=== PATIENT | female | born 1965 | race Caucasian/White ===

== ENCOUNTER 2018-02-04 14:43 | Emergency (ER) | payer BC, SELFPAY ==
[2018-02-04 15:02] VITALS: BP 130/92; PULSE 108; RESP 20; TEMP 36.9; O2SAT 96; BMI 49.4
--- NOTE | 2018-02-04 15:02 | XR_ITS ---
XR knee RT 3V HISTORY: Posttraumatic pain ITS.REASON: FELL AT HOME 2WKS AGO ORDERING PHYSICIAN: Deirdre Suero PATIENT AGE: 52 years COMPARISON: None FINDINGS: No fracture or dislocation. No lytic or blastic change. Normal mineralization. There are minimal osteoarthritic changes of the patellofemoral joint. IMPRESSION: No acute finding
--- NOTE | 2018-02-04 15:10 | HMH.EDUTC ---
[facility] [place] Clinical Impression: UTI (urinary tract infection) Qualifiers: Urinary tract infection type: site unspecified Hematuria presence: with hematuria Qualified Code(s): N39.0 - Urinary tract infection, site not specified; R31.9 - Hematuria, unspecified Knee sprain Qualifiers: Encounter type: initial encounter Involved ligament of knee: unspecified ligament Laterality: right Qualified Code(s): S83.91XA - Sprain of unspecified site of right knee, initial encounter Disposition: Home, Self-Care Condition on Discharge: Good Instructions: Urinary Tract Infection, DI for Urinary Tract Infection (UTI), DI for Knee Sprain, Knee Sprain Additional Instructions: *weight bearing as tolerated *RICE, Rest the extremity, Ice 15-20 minutes 3-4 times daily, Compress- wear the kahlil wrap as discussed as much as possible to help reduce swelling and pain, Elevate the extremity when at rest *Kahlil wrap is for support and help control swelling, use it except in the shower. Be sure that is not to tight but not to loose either *Elevate when resting *Ibuprofen 600-800mg every 6-8 hours as needed for pain an inflammation. If need something more can take Tylenol in between doses of Ibuprofen to help Immediately follow up for new or worsening of symptoms, or no noticeable improvement over the next 3-5 days *Increase fluids. Water not Soda or Tea *Start antibiotic immediately and be sure to take as ordered for the FULL length of time although you should start to see improvement over the next 48 hours *Pyridium as needed Remember this medication will turn your urine [place]. This is normal but it will stain what ever it gets on *You should not use Pyridium for more than 48 hours. If so , follow up with your primary physician to review urine culture and ensure that antibiotic is adequate for infection *Be SURE to follow up anytime for new or worsening symptoms. AND in 48 hours for urine culture results AND in 10-14 days to repeat UA to ensure infection is resolved and blood no longer present *Be sure to let your PCP know that we sent urine cultures from the [facility] so they can follow up to ensure that you area the on the correct antibiotic Prescriptions: Sulfamethoxazole/Trimethoprim [Bactrim DS tablet] 1 each PO BID #20 tab Referrals: Amy Simons [Primary Care Provider] - 3 days (Follow up in 12-48 hours if no improvement or worsening of symptoms) Time of Disposition: 15:43 Medical Decision Making - Medical Records Medical records reviewed: Yes: I reviewed the patient's medical records. - Aneesh Inquiry Pt receiving controlled substance: No Aneesh was queried for this patient: No Vital Signs: 02/04/18 15:02 Temperature 98.4 F Temperature Source Temporal Artery Scan Pulse Rate [Right] 108 H Respiratory Rate 20 Blood Pressure [Right Arm] 130/92 Blood Pressure Mean [Right Arm] 104 Blood Pressure Source [Right Arm] Automatic Cuff Blood Pressure Position [Right Arm] Sitting 02 Sat by Pulse Oximetry 96 Oxygen Delivery Method Room Air - Lab Data Lab results reviewed: Yes: I reviewed the patient's lab results. Lab Results 02/04/18 15:01: Urine Color Red, Urine Appearance Clear, Urine pH 5.0, Ur Specific [place] 1.025, Urine Protein 1+, Urine Glucose (UA) 250, Urine Ketones 15, Urine Blood Negative, Urine Nitrate Positive A, Urine Bilirubin Trace, Urine Urobilinogen 4, Ur Leukocyte Esterase 3+ A Orders (Tests/Meds): ORDERS Category Date Time Status Knee XR left 2 views [XR knee LT 2V] Stat Exams 02/04/18 15:01 Stop Req Knee XR right 2 views [XR knee RT 2V] Stat Exams 02/04/18 15:02 Ordered - Radiology Data #1 Image(s): Knee Image Reviewed: Yes I reviewed the patient's radiology image w/the ED provider Preliminary Findings: No Fracture Seen [facility] [place] - General Stated complaint: AO 01/18/18 right knee pain Time Seen by Provider: 02/04/18 15:11 Mode of Arrival: Ambulatory Source of Information: Patient Limitatio
[2018-02-04 15:11] LABS: Apearance,Urine Clear (Clear); Color,Urine Red (Yellow)
[2018-02-04 15:12] LABS: Specific Gravity, Urine 1.025 (1.005-1.030)
[2018-02-04 15:15] LABS: Glucose,Urine (UA) 250 (Negative); Protein,Urine 1+ (Negative)
[2018-02-04 15:16] LABS: Bilirubin,Urine Trace (Negative); Blood, Urine Negative (Negative); Ketones,Urine 15 (Negative)
--- NOTE | 2018-02-04 15:16 | ED_ITS ---
[facility] [place] Impression: UTI (urinary tract infection) Qualifiers: Urinary tract infection type: site unspecified Hematuria presence: with hematuria Qualified Code(s): N39.0 - Urinary tract infection, site not specified ; R31.9 - Hematuria, unspecified Knee sprain Qualifiers: Encounter type: initial encounter Involved ligament of knee: unspecified ligament Laterality: right Qualified Code(s): S83.91XA - Sprain of unspecified site of right knee, initial encounter Disposition: Home, Self-Care Condition on Discharge: Good Instructions: Urinary Tract Infection, DI for Urinary Tract Infection (UTI), DI for Knee Sprain, Knee Sprain Additional Instructions: *weight bearing as tolerated *RICE, Rest the extremity, Ice 15-20 minutes 3-4 times daily, Compress- wear the kahlil wrap as discussed as much as possible to help reduce swelling and pain, Elevate the extremity when at rest *Kahlil wrap is for support and help control swelling, use it except in the shower. Be sure that is not to tight but not to loose either *Elevate when resting *Ibuprofen 600-800mg every 6-8 hours as needed for pain an inflammation. If need something more can take Tylenol in between doses of Ibuprofen to help Immediately follow up for new or worsening of symptoms, or no noticeable improvement over the next 3-5 days *Increase fluids. Water not Soda or Tea *Start antibiotic immediately and be sure to take as ordered for the FULL length of time although you should start to see improvement over the next 48 hours *Pyridium as needed Remember this medication will turn your urine [place]. This is normal but it will stain what ever it gets on *You should not use Pyridium for more than 48 hours. If so , follow up with your primary physician to review urine culture and ensure that antibiotic is adequate for infection *Be SURE to follow up anytime for new or worsening symptoms. AND in 48 hours for urine culture results AND in 10-14 days to repeat UA to ensure infection is resolved and blood no longer present *Be sure to let your PCP know that we sent urine cultures from the [facility] so they can follow up to ensure that you area the on the correct antibiotic Prescriptions: Sulfamethoxazole/Trimethoprim [Bactrim DS tablet] 1 each PO BID #20 tab Referrals: Amy Simons [Primary Care Provider] - 3 days (Follow up in 12-48 hours if no improvement or worsening of symptoms) Time of Disposition: 15:43 Medical Decision Making - Medical Records Medical records reviewed: Yes: I reviewed the patient's medical records. - Aneesh Inquiry Pt receiving controlled substance: No Aneesh was queried for this patient: No Vital Signs: 02/04/18 15:02 Temperature 98.4 F Temperature Source Temporal Artery Scan Pulse Rate [Right] 108 H Respiratory Rate 20 Blood Pressure [Right Arm] 130/92 Blood Pressure Mean [Right Arm] 104 Blood Pressure Source [Right Arm] Automatic Cuff Blood Pressure Position [Right Arm] Sitting 02 Sat by Pulse Oximetry 96 Oxygen Delivery Method Room Air - Lab Data Lab results reviewed: Yes: I reviewed the patient's lab results. Lab Results 02/04/18 15:01: Urine Color Red, Urine Appearance Clear, Urine pH 5.0, Ur Specific [place] 1.025, Urine Protein 1+, Urine Glucose (UA) 250, Urine Ketones 15, Urine Blood Negative, Urine Nitrate Positive A, Urine Bilirubin Trace, Urine Urobilinogen 4, Ur Leukocyte Esterase 3+ A Orders (Tests/Meds): ORDERS Category Date Time Status Knee XR left 2
[2018-02-04 15:17] LABS: UTC Leukocyte Esterase,Urine 3+ (Negative); UTC Nitrate,Urine Positive (Negative); Urobilinogen,Urine 4 EU/dl (0.2)
[2018-02-04 16:06] VITALS: BP 130/92; PULSE 100; RESP 20; TEMP 36.9
== END 2018-02-04 16:07 | disposition home or self-care (01) ==
PROVIDERS: Emergency Provider Nurse Practitioner; Family Provider Family Medicine; PCP Family Medicine
DX: N39.0 Urinary tract infection, site not specified (principal); S83.91XA Sprain of unspecified site of right knee, initial encounter; W01.0XXA Fall on same level from slipping, tripping and stumbling without subsequent striking against object, initial encounter; Y92.019 Unspecified place in single-family (private) house as the place of occurrence of the external cause; E11.9 Type 2 diabetes mellitus without complications; Z79.84 Long term (current) use of oral hypoglycemic drugs; I10 Essential (primary) hypertension; M79.7 Fibromyalgia
CPT/HCPCS: 73562; 81003; 87086; 96372; 99202

== ENCOUNTER → 2019-04-13 08:18 | Outpatient (CLI) | payer BC, MEDICARE, SELFPAY ==
--- NOTE | 2019-04-13 08:26 | XR_ITS ---
XR foot wt bearing LT 3V HISTORY: ITS.REASON: fracture/dislocation F/U ORDERING PHYSICIAN: Allie Pino DPM PATIENT AGE: 53 years COMPARISON: 03/09/2019 FINDINGS: There is a faint calcification once again noted at the base and lateral aspect of the fifth metatarsal which could represent an old avulsion fracture. Otherwise negative. IMPRESSION: No change possible avulsion fracture at the base of the fifth metatarsal
== END ==
PROVIDERS: PCP Family Medicine; Visit Provider Podiatrist
DX: M79.672 Pain in left foot (principal); T14.8XXA Other injury of unspecified body region, initial encounter
CPT/HCPCS: 73630

== ENCOUNTER 2019-05-03 08:56 | Outpatient (RCR) | payer BC, MEDICARE, SELFPAY | END 2019-05-03 08:59 | disposition home or self-care (01) | LOC: PT 08:56 | PROVIDERS: Visit Provider Nurse Practitioner | DX: M70.62 Trochanteric bursitis, left hip (principal) | CPT/HCPCS: 97033; 97110; 97163 ==

== ENCOUNTER 2019-05-12 09:30 | Outpatient (RCR) | payer BC, MEDICARE, SELFPAY | END 2019-05-12 09:35 | disposition home or self-care (01) | LOC: PT 09:30 | PROVIDERS: Visit Provider Podiatrist | DX: S93.402A Sprain of unspecified ligament of left ankle, initial encounter (principal) | CPT/HCPCS: 97010; 97014; 97033; 97110; 97163; G0283 ==

== ENCOUNTER → 2020-06-06 08:43 | Outpatient (POV) | payer BC, MEDICARE, SELFPAY | PROVIDERS: PCP Pediatrics; Visit Provider Dermatology | DX: Z00.00 Encounter for general adult medical examination without abnormal findings (principal) ==

== ENCOUNTER 2020-12-28 10:44 | Emergency (ER) | payer BC, MEDICARE, SELFPAY ==
[2020-12-28 11:00] VITALS: BP 158/85; PULSE 95; RESP 20; TEMP 36.9; O2SAT 97; BMI 40.3
--- NOTE | 2020-12-28 11:02 | HMH.EDUTC ---
[facility] [place] Clinical Impression: Sinusitis Qualifiers: Sinusitis location: unspecified location Chronicity: acute Recurrence: non-recurrent Qualified Code(s): J01.90 - Acute sinusitis, unspecified Disposition: Home, Self-Care Condition on Discharge: Good Instructions: Sinusitis, DI for Sinusitis Additional Instructions: Drink plenty of fluids. Take tylenol for pain or fever. Take the medications as directed. Follow up with your regular doctor. GO TO THE ER FOR ANY WORSENING SYMPTOMS Prescriptions: Cefdinir [Omnicef 300mg Capsule] 300 mg PO BID #20 cap Transmission Status: Received by [email or web address] predniSONE [Prednisone 20mg Tab] 20 mg PO BID 5 Days #10 tab Transmission Status: Received by [email or web address] Referrals: Dmitry Belcher JR, MD [Primary Care Provider] - Forms: Work/School Release Time of Disposition: 11:51 Medical Decision Making - Medical Records Medical records reviewed: No: I reviewed the patient's medical records. - Aneesh Inquiry Pt receiving controlled substance: No Vital Signs: 12/28/20 11:00 12/28/20 11:34 Temperature 98.5 F 98.5 F Temperature Source Oral Pulse Rate 95 H Pulse Rate [Right Brachial] 95 H Respiratory Rate 20 20 Blood Pressure 158/85 H Blood Pressure [Right Arm] 158/85 H Blood Pressure Mean [Right Arm] 109 Blood Pressure Source [Right Arm] Automatic Cuff Blood Pressure Position [Right Arm] Sitting 02 Sat by Pulse Oximetry 97 Oxygen Delivery Method Room Air - Lab Data Lab Results 12/28/20 11:20: Urine Color Yellow, Urine Appearance Clear, Urine pH 5.5, Ur Specific [place] <= 1.005, Urine Protein Negative, Urine Glucose (UA) 500, Urine Ketones Negative, Urine Blood Negative, Urine Nitrate Negative, Urine Bilirubin Negative, Urine Urobilinogen 0.2, Ur Leukocyte Esterase Negative Orders (Tests/Meds): ED MEDICATIONS Discontinued Medications Generic Name Dose Route Start Last Admin Trade Name Freq PRN Reason Stop Dose Admin Ceftriaxone Sodium 1 gm 12/28/20 11:36 12/28/20 11:45 Ceftriaxone 1gm Vial IM 12/28/20 11:37 1 gm ONCE ONE Administration Protocol Lidocaine HCl 0 ml 12/28/20 11:36 12/28/20 11:45 Lidocaine 1% 5ml Pf Vial IM 12/28/20 11:37 2.1 ml ONCE ONE Administration ORDERS Category Date Time Status Covid-19 Nasal PCR ([facility]) Routine Lab 12/28/20 11:00 Received [facility] [place] HPI - General Stated complaint: headache,fatigue,nose bleed Time Seen by Provider: 12/28/20 11:03 - History of Present Illness Provider Complaint: She says that she is having sinus congestion, right sided facial pressure and fatigue. She has had these syptoms on and off for the past 3 months or so. She has a history of Sjogren's Syndrome. - Related Data Home Medications Medication Instructions Recorded Confirmed paroxetine HCl 40 mg tablet 1 tbsp PO DAILY 90 Days #90 01/06/18 12/16/19 trazodone 100 mg tablet 1 tab PO DAILY 90 Days #90 01/06/18 12/16/19 tramadol 50 mg tablet 1 tab PO DAILYP PRN 90 Days #270 03/25/19 12/16/19 tizanidine 4 mg tablet 4 mg PO BID tab 12/16/19 12/16/19 Previous Rx's Medication Instructions Recorded Amoxicillin/Potassium Clav 1 tab PO Q12H 10 Days #20 tab 01/28/20 [Augmentin 875-125 Tablet] Fluticasone Propionate [Flonase 1 spr NS DAILY #1 bottle 01/28/20 50mcg nasal spray 16gm] Cefdinir [Omnicef 300mg Capsule] 300 mg PO BID #20 cap 12/28/20 predniSONE [Prednisone 20mg 20 mg PO BID 5 Days #10 tab 12/28/20 Tab] Allergies Allergy/AdvReac Type Severity Reaction Status Date / Time No Known Allergies Allergy Verified 12/16/19 19:13 [facility] History - Hepatitis A Screen Attestation statement:: This patient has been screened for Hepatitis A risk factors. I have reviewed the patient's past medical history: Yes Medical History: Reports:: Diabetes Mellitus Type 1, Hyperlipidemia, Hypertension Denies:: Cancer, Diabetes Me
[2020-12-28 11:34] VITALS: BP 158/85; PULSE 95; RESP 20; TEMP 36.9; O2SAT 97
[2020-12-28 12:14] LABS: Apearance,Urine Clear (Clear); Blood, Urine Negative (Negative); Color,Urine Yellow (Yellow); Glucose,Urine (UA) 500 (Negative); Ketones,Urine Negative (Negative); PH,Urine 5.5 (5.0-8.5); Protein,Urine Negative (Negative); Specific Gravity, Urine <= 1.005 (1.005-1.030)
[2020-12-28 12:15] LABS: Bilirubin,Urine Negative (Negative); UTC Leukocyte Esterase,Urine Negative (Negative); UTC Nitrate,Urine Negative (Negative); Urobilinogen,Urine 0.2 EU/dl (0.2)
== END 2020-12-28 11:55 | disposition home or self-care (01) ==
PROVIDERS: Emergency Provider Nurse Practitioner Family; PCP Pediatrics
DX: J01.90 Acute sinusitis, unspecified (principal)
CPT/HCPCS: 81003; 96372; 99202; G0463; U0003

== ENCOUNTER → 2021-01-23 10:14 | Outpatient (POV) | payer BC, MEDICARE, SELFPAY | PROVIDERS: Visit Provider Dermatology | DX: Z00.00 Encounter for general adult medical examination without abnormal findings (principal) ==

== ENCOUNTER 2021-09-24 13:12 | Emergency (ER) | payer BC, MEDICARE, SELFPAY ==
[2021-09-24 14:50] VITALS: BP 122/65; PULSE 83; RESP 20; TEMP 36.7; O2SAT 99; BMI 40.8
--- NOTE | 2021-09-24 15:14 | HMH.EDUTC ---
[facility] [place] Disposition Clinical Impression: Seasonal allergies Otitis media Qualifiers: Otitis media type: suppurative Chronicity: acute Laterality: bilateral Recurrence: non-recurrent Spontaneous tympanic membrane rupture: without spontaneous rupture Qualified Code(s): H66.003 - Acute suppurative otitis media without spontaneous rupture of ear drum, bilateral Disposition: Home, Self-Care Condition on Discharge: Good Instructions: Middle Ear Infection Additional Instructions: Drink plenty of fluids. Take tylenol or ibuprofen for pain or fever. Take the medications as directed. Follow up with your regular doctor. GO TO THE ER FOR ANY WORSENING SYMPTOMS Follow your diabetic diet closely while you are on the steroids. They will make your blood sugar go up. Prescriptions: methylPREDNISolone [Medrol] 4 mg PO DIRECTED 6 Days #21 packet Transmission Status: Received by [facility] Cefdinir [Omnicef 300mg Capsule] 300 mg PO BID #20 cap Transmission Status: Received by [facility] Referrals: Dmitry Belcher JR, MD [Primary Care Provider] - Time of Disposition: 15:21 Medical Decision Making - Medical Records Medical records reviewed: No: I reviewed the patient's medical records. - Aneesh Inquiry Pt receiving controlled substance: No Vital Signs: 09/24/21 14:50 09/24/21 15:20 Temperature 98.1 F 98.1 F Temperature Source Oral Pulse Rate 83 Pulse Rate [Left Brachial] 83 Respiratory Rate 20 20 Blood Pressure 122/65 Blood Pressure [Left Arm] 122/65 Blood Pressure Mean [Left Arm] 84 Blood Pressure Source [Left Arm] Automatic Cuff Blood Pressure Position [Left Arm] Sitting 02 Sat by Pulse Oximetry 99 Oxygen Delivery Method Room Air - Lab Data Lab results reviewed: Yes: I reviewed the patient's lab results. [facility] [place] HPI - General Stated complaint: lt ear/neck pain Time Seen by Provider: 09/24/21 15:14 Mode of Arrival: Ambulatory Source of Information: Patient Limitations: No Limitations Description of Symptoms (Recalled from Triage Doc. by RN): PATIENT C/O LEFT EAR AND NECK PAIN THAT RADIATES INTO HER LEFT SHOULDER X 2 DAYS. REPORTS A HISTORY OF TMJ, BUT STATES THIS PAIN IS WORSE THAN NORMAL HEENT Symptoms (Recalled from RN notes): Yes Resp Symptoms (Recalled from RN notes): No Skin Symptoms (Recalled from RN notes): No MS Symptoms (Recalled from RN notes): No Functional Status (Recalled from RN notes): wnl - History of Present Illness Provider Complaint: She c/o left ear pain for the past 2 days. She is now having tenderness and pain in the left side of her neck when she turns her head. She denies any fever or chills. She has a history of getting ear infections and she has a history of tmj. She states that she does not feel like this is her normal tmj symptoms. She has been having worsening allergy symptoms for the past several days also. She denies any chest pain or cardiac history. She denies any radiation of her pain. - Related Data Home Medications Medication Instructions Recorded Confirmed paroxetine HCl 40 mg tablet 1 tbsp PO DAILY 90 Days #90 01/06/18 12/16/19 trazodone 100 mg tablet 1 tab PO DAILY 90 Days #90 01/06/18 12/16/19 tramadol 50 mg tablet 1 tab PO DAILYP PRN 90 Days #270 03/25/19 12/16/19 tizanidine 4 mg tablet 4 mg PO BID tab 12/16/19 12/16/19 Previous Rx's Medication Instructions Recorded Amoxicillin/Potassium Clav 1 tab PO Q12H 10 Days #20 tab 01/28/20 [Augmentin 875-125 Tablet] Fluticasone Propionate [Flonase 1 spr NS DAILY #1 bottle 01/28/20 50mcg nasal spray 16gm] Cefdinir [Omnicef 300mg Capsule] 300 mg PO BID #20 cap 12/28/20 predniSONE [Prednisone 20mg 20 mg PO BID 5 Days #10 tab 12/28/20 Tab] Cefdinir [Omnicef 300mg Capsule] 300 mg PO BID #20 cap 09/24/21 methylPREDNISolone [Medrol] 4 mg PO DIRECTED 6 Days #21 09/24/21 packet Allergies Allergy/AdvReac Type Severity Reaction Status Date / Ti
[2021-09-24 15:20] VITALS: BP 122/65; PULSE 83; RESP 20; TEMP 36.7; O2SAT 99
== END 2021-09-24 15:25 | disposition home or self-care (01) ==
PROVIDERS: Emergency Provider Nurse Practitioner Family; PCP Pediatrics
DX: H66.003 Acute suppurative otitis media without spontaneous rupture of ear drum, bilateral (principal); M25.512 Pain in left shoulder; E10.9 Type 1 diabetes mellitus without complications; I10 Essential (primary) hypertension; E78.5 Hyperlipidemia, unspecified; Z79.899 Other long term (current) drug therapy
CPT/HCPCS: 99202; G0463

== ENCOUNTER 2021-10-25 12:48 | Emergency (ER) | payer BC, MEDICARE, SELFPAY ==
[2021-10-25 12:56] VITALS: BP 128/90; PULSE 70; RESP 16; TEMP 36.9; O2SAT 98; BMI 34.3
[2021-10-25 13:15] VITALS: BP 128/90; PULSE 70; RESP 16; TEMP 36.9; O2SAT 98; BMI 34.1
--- NOTE | 2021-10-25 14:13 | HMH.EDUTC ---
[facility] [place]: Muscle spasm Disposition: Home, Self-Care Condition on Discharge: Good Instructions: Methylprednisolone, DI for Muscle Spasm Additional Instructions: Do not take your current Tizanidine prescription, you was given a different dose to take for the next 5 days Take the medication you was prescribed today then you may resume you previous prescription after the 5 day dose change to keep you from running out of your medication Warm compresses may help with muscle spasm and pain Follow up with your Family Doctor if no improvement or any worsening of symptoms Return if needed Straight to ER if any life threatening symptoms Start oral steriods tomorrow Prescriptions: methylPREDNISolone [Medrol 4mg tab] 4 mg PO DIRECTED #21 tab Transmission Status: Received by [facility] Tizanidine HCl [Zanaflex 4mg tab] 8 mg PO TID #30 tab Transmission Status: Received by [id number] Referrals: Dmitry Belcher JR, MD [Primary Care Provider] - As needed Time of Disposition: 15:03 Medical Decision Making - Aneesh Inquiry Pt receiving controlled substance: No Aneesh was queried for this patient: No Vital Signs: 10/25/21 12:56 10/25/21 13:15 Temperature 98.5 F 98.5 F Temperature Source Oral Oral Pulse Rate [Right] 70 70 Respiratory Rate 16 16 Blood Pressure [Right Arm] 128/90 128/90 Blood Pressure Mean [Right Arm] 102 102 Blood Pressure Source [Right Arm] Automatic Cuff Automatic Cuff Blood Pressure Position [Right Arm] Sitting Sitting 02 Sat by Pulse Oximetry 98 98 Oxygen Delivery Method Room Air Room Air Orders (Tests/Meds): ED MEDICATIONS Discontinued Medications Generic Name Dose Route Start Last Admin Trade Name Freq PRN Reason Stop Dose Admin Methylprednisolone Sodium Succinate 125 mg 10/25/21 14:46 10/25/21 14:54 Methylprednisolone Sod Succ 125mg Vial IM 10/25/21 14:47 125 mg ONCE ONE Administration Medical Decision Narrative: Medication discussed with [place] [facility] [place] - General Stated complaint: neck and arm pain, no accident Time Seen by Provider: 10/25/21 14:17 Mode of Arrival: Ambulatory Source of Information: Patient Limitations: No Limitations Description of Symptoms (Recalled from Triage Doc. by RN): pt c/o left shouler and arm pain. Advises it feels like she has pulled a muscle, she has a hx of problems like this. Advises it has been going on for couple of weeks and she thought it would get better. Takes muscle relaxers but had little relief HEENT Symptoms (Recalled from RN notes): No Resp Symptoms (Recalled from RN notes): No Skin Symptoms (Recalled from RN notes): No MS Symptoms (Recalled from RN notes): Yes Functional Status (Recalled from RN notes): WNL - History of Present Illness Provider Complaint: Patient states that she feels like she is having muscle spasms in her left shoulder area States that she has been having pain in her neck/shoulder area for a couple of weeks States that she takes muscle relaxers daily but hasnt helped much States that pain in her shoulder area is worse with movement and feels tight States that today she was still having pain so she came in to see if there was something she could get - Related Data Home Medications Medication Instructions Recorded Confirmed paroxetine HCl 40 mg tablet 1 tbsp PO DAILY 90 Days #90 01/06/18 12/16/19 trazodone 100 mg tablet 1 tab PO DAILY 90 Days #90 01/06/18 12/16/19 tramadol 50 mg tablet 1 tab PO DAILYP PRN 90 Days #270 03/25/19 12/16/19 tizanidine 4 mg tablet 4 mg PO BID tab 12/16/19 12/16/19 Previous Rx's Medication Instructions Recorded Amoxicillin/Potassium Clav 1 tab PO Q12H 10 Days #20 tab 01/28/20 [Augmentin 875-125 Tablet] Fluticasone Propionate [Flonase 1 spr NS DAILY #1 bottle 01/28/20 50mcg nasal spray 16gm] Cefdinir [Omnicef 300mg Capsule] 300 mg PO BID #20 cap 12/28/20 predniSONE [Prednisone 20mg 20 mg PO BID 5 Days #
[2021-10-25 15:11] VITALS: BP 128/90; PULSE 70; RESP 16; TEMP 36.9; O2SAT 98
== END 2021-10-25 15:15 | disposition home or self-care (01) ==
PROVIDERS: Emergency Provider Nurse Practitioner; PCP Pediatrics
DX: M62.838 Other muscle spasm (principal); M25.512 Pain in left shoulder; E10.9 Type 1 diabetes mellitus without complications; M79.7 Fibromyalgia
CPT/HCPCS: 96372; 99202; G0463

== ENCOUNTER 2022-08-09 09:53 | Emergency (ER) | payer BC, MEDICARE, SELFPAY ==
--- NOTE | 2022-08-09 10:04 | XR_ITS ---
FINAL REPORT CLINICAL HISTORY: FALL, right hand pain and swelling FINDINGS: RIGHT HAND Three views demonstrate no acute fracture. There is no dislocation. The visualized joint spaces are normally aligned. There are mild degenerative changes. There is a small chronic calcification adjacent to the 2nd proximal phalanx. The soft tissues are otherwise unremarkable. IMPRESSION: No acute bony abnormality. Reviewed, Interpreted and Dictated by Ed Taylor III, MD Transcribed by Cassie Faria Authenticated and [facility]
[2022-08-09 10:57] VITALS: BP 122/71; PULSE 86; RESP 19; TEMP 36.6; O2SAT 98; BMI 33.4
--- NOTE | 2022-08-09 11:07 | EXP.UTC ---
Discharge Plan Disposition Patient Disposition: Home, Self-Care Condition: Good Prescriptions Prescriptions: No Action trazodone 100 mg tablet 1 tab PO DAILY 90 Days Qty: 90 Label Comments: paroxetine HCl 40 mg tablet 1 tbsp PO DAILY 90 Days Qty: 90 Label Comments: tramadol 50 mg tablet 1 tab PO DAILYP PRN (Reason: PAIN) 90 Days Qty: 270 Label Comments: tizanidine 4 mg tablet 4 mg PO BID Label Comments: TAKE 2 TABLETS BY MOUTH TWICE DAILY FOR 90 DAYS prednisone 20 MG tablet 20 mg PO BID 5 Days Qty: 10 0RF cefdinir 300 MG capsule 300 mg PO BID Qty: 20 0RF methylprednisolone 4 MG tablets,dose pack 4 mg PO DIRECTED 6 Days Qty: 21 0RF cefdinir 300 MG capsule 300 mg PO BID Qty: 20 0RF tizanidine 4 MG tablet 8 mg PO TID Qty: 30 0RF Rx Instructions: increase dose of medication, do not take current Tiazadine with this medication, may resume when this regimen is complete methylprednisolone 4 MG tablet 4 mg PO DIRECTED Qty: 21 0RF Rx Instructions: Take as directed on package instructions fluticasone propionate 120 SPR/BOT bottle 1 spr NS DAILY Qty: 1 0RF Rx Instructions: each nostril daily amoxicillin-pot clavulanate 1 EACH tablet 1 tab PO Q12H 10 Days Qty: 20 0RF Referrals Follow up/Referrals: Talib Hoff MBBS [Primary Care Provider] - See instructions Activity Restrictions/Add. Instructions Additional Instructions/Restrictions: *RICE, Rest the extremity, Ice 15-20 minutes 3-4 times daily, Compress- wear the kahlil wrap as discussed as much as possible to help reduce swelling and pain, Elevate the extremity when at rest *Kahlil wrap is for support and help control swelling, use it except in the shower. Be sure that is not to tight but not to loose either *Elevate when resting? *Ibuprofen every 6-8 hours as needed for pain an inflammation. If need something more can take Tylenol in between doses of Ibuprofen to help Immediately follow up with your family doctor for new or worsening of symptoms, or no noticeable improvement over the next 3-5 days Clinical Impressions Clinical Impression: Contusion of hand Instructions Patient Instructions: DI for Contusion, Ibuprofen, How To Perform RICE (Rest, Ice, Compress, Elevate) Discharge ED Provider: Deirdre Suero [facility] [place] HPI General Stated complaint: AO fell@home 08/09/22 RT hand pain Mode of Arrival: Ambulatory Source of Information: Patient Limitations: No Limitations Time Seen by Provider: 08/09/22 11:07 Description of Symptoms (Recalled from Triage Doc. by RN): Pt c/o rt hand pain after falling this AM while walking through the house. HEENT Symptoms (Recalled from RN notes): No Resp Symptoms (Recalled from RN notes): No Skin Symptoms (Recalled from RN notes): No MS Symptoms (Recalled from RN notes): Yes (Rt hand injury) Functional Status (Recalled from RN notes): n/a History of Present Illness Provider Complaint: Patient states that she was at home this morning when she slipped and fell and hurt her right hand States that she has been having pain and swelling in her her knuckles on her index and middle finger States that hurts when she moves them or makes a fist States that when she was still having some bruising and swelling she came in to get it tested Related Data Home Medications Medication Instructions Recorded Confirmed paroxetine HCl 40 mg tablet 1 tbsp PO DAILY MOOD 90 days ##90 01/06/18 12/16/19 trazodone 100 mg tablet 1 tab PO DAILY MOOD 90 days ##90 01/06/18 12/16/19 tramadol 50 mg tablet 1 tab PO DAILYP PRN PAIN 90 days 03/25/19 12/16/19 ##270 tizanidine 4 mg tablet 4 mg PO BID 12/16/19 12/16/19 Previous Rx's Medication Instructions Recorded amoxicillin 875 mg-potassium 1 tab PO Q12H 10 days #20 tabs 01/28/20 clavulanate 125 mg tablet fluticasone propionate 50 1 spr NS DAILY ##1 01/28/20 mcg/actuation nasal spr
[2022-08-09 11:21] VITALS: BP 122/71; PULSE 86; RESP 19; TEMP 36.6; O2SAT 98
== END 2022-08-09 11:24 | disposition home or self-care (01) ==
PROVIDERS: Emergency Provider Nurse Practitioner; PCP Family Medicine Sports Medicine
DX: S60.221A Contusion of right hand, initial encounter (principal)
CPT/HCPCS: 73130; 99212; G0463

== ENCOUNTER 2022-10-13 11:25 | Emergency (ER) | payer BC, MEDICARE, SELFPAY ==
--- NOTE | 2022-10-13 13:30 | EXP.UTC ---
Discharge Plan Disposition Patient Disposition: Home, Self-Care Condition: Good Prescriptions Prescriptions: New benzonatate [benzonatate] 100 mg capsule 100 mg PO TIDP PRN (Reason: Cough) Qty: 30 0RF methylprednisolone 4 mg Tablets,Dose Pack 4 mg PO DIRECTED Qty: 21 0RF amoxicillin-pot clavulanate 500-125 mg tablet 1 tab PO BID Qty: 20 0RF ciprofloxacin-dexamethasone 0.3-0.1 % Drops,Suspension 2 drp OTIC (EAR) BID 7 Days Qty: 1 0RF No Action trazodone 100 mg tablet 1 tab PO DAILY 90 Days Qty: 90 Label Comments: paroxetine HCl 40 mg tablet 1 tbsp PO DAILY 90 Days Qty: 90 Label Comments: tramadol 50 mg tablet 1 tab PO DAILYP PRN (Reason: PAIN) 90 Days Qty: 270 Label Comments: tizanidine 4 mg tablet 4 mg PO BID Label Comments: TAKE 2 TABLETS BY MOUTH TWICE DAILY FOR 90 DAYS prednisone 20 MG tablet 20 mg PO BID 5 Days Qty: 10 0RF cefdinir 300 MG capsule 300 mg PO BID Qty: 20 0RF methylprednisolone 4 MG tablets,dose pack 4 mg PO DIRECTED 6 Days Qty: 21 0RF cefdinir 300 MG capsule 300 mg PO BID Qty: 20 0RF tizanidine 4 MG tablet 8 mg PO TID Qty: 30 0RF Rx Instructions: increase dose of medication, do not take current Tiazadine with this medication, may resume when this regimen is complete methylprednisolone 4 MG tablet 4 mg PO DIRECTED Qty: 21 0RF Rx Instructions: Take as directed on package instructions fluticasone propionate 120 SPR/BOT bottle 1 spr NS DAILY Qty: 1 0RF Rx Instructions: each nostril daily amoxicillin-pot clavulanate 1 EACH tablet 1 tab PO Q12H 10 Days Qty: 20 0RF Referrals Follow up/Referrals: Provider,Referral, MD [Primary Care Provider] - See instructions Activity Restrictions/Add. Instructions Additional Instructions/Restrictions: Drink plenty of fluids. Take tylenol or ibuprofen for pain or fever. Take the medications as directed. Follow up with your regular doctor. GO TO THE ER FOR ANY WORSENING SYMPTOMS Clinical Impressions Clinical Impression: Otitis media Instructions Patient Instructions: Middle Ear Infection Discharge ED Provider: Paresh Christiansen [facility] General Stated complaint: Earache both Time Seen by Provider: 10/13/22 13:26 History of Present Illness Provider Complaint: She reports that she his having bilateral ear pain, cough and low grade fever for the past 3 days. Related Data Home Medications Medication Instructions Recorded Confirmed paroxetine HCl 40 mg tablet 1 tbsp PO DAILY MOOD 90 days ##90 01/06/18 12/16/19 trazodone 100 mg tablet 1 tab PO DAILY MOOD 90 days ##90 01/06/18 12/16/19 tramadol 50 mg tablet 1 tab PO DAILYP PRN PAIN 90 days 03/25/19 12/16/19 ##270 tizanidine 4 mg tablet 4 mg PO BID 12/16/19 12/16/19 Previous Rx's Medication Instructions Recorded amoxicillin 875 mg-potassium 1 tab PO Q12H 10 days #20 tabs 01/28/20 clavulanate 125 mg tablet fluticasone propionate 50 1 spr NS DAILY ##1 01/28/20 mcg/actuation nasal spray,suspension cefdinir 300 mg capsule 300 mg PO BID #20 caps 12/28/20 prednisone 20 mg tablet 20 mg PO BID 5 days #10 tabs 12/28/20 cefdinir 300 mg capsule 300 mg PO BID #20 caps 09/24/21 methylprednisolone 4 mg tablets in 4 mg PO DIRECTED 6 days #21 09/24/21 a dose pack packets methylprednisolone 4 mg tablet 4 mg PO DIRECTED #21 tabs 10/25/21 tizanidine 4 mg tablet 8 mg PO TID #30 tabs 10/25/21 amoxicillin 500 mg-potassium 1 tab PO BID #20 tabs 10/13/22 clavulanate 125 mg tablet benzonatate 100 mg capsule 100 mg PO TIDP PRN Cough #30 caps 10/13/22 ciprofloxacin 0.3 %-dexamethasone 2 drp otic (ear) BID 7 days #1 ea 10/13/22 0.1 % ear drops,suspension methylprednisolone 4 mg tablets in 4 mg PO DIRECTED #21 tabs 10/13/22 a dose pack Allergies Allergy/AdvReac Type Severity Reaction Status Date / Time No Known Allergies Allergy Ve
[2022-10-13 13:31] VITALS: BP 135/75; PULSE 81; RESP 16; TEMP 36.8; O2SAT 95; BMI 41.5
[2022-10-13 14:14] VITALS: BP 135/75; PULSE 81; RESP 16; TEMP 36.8
== END 2022-10-13 14:17 | disposition home or self-care (01) ==
PROVIDERS: Emergency Provider Nurse Practitioner Family
DX: H66.93 Otitis media, unspecified, bilateral (principal); R50.9 Fever, unspecified; R05.9 Cough, unspecified; Z79.1 Long term (current) use of non-steroidal anti-inflammatories (NSAID); Z79.51 Long term (current) use of inhaled steroids; Z79.52 Long term (current) use of systemic steroids; Z79.899 Other long term (current) drug therapy
CPT/HCPCS: 99213; G0463

== ENCOUNTER 2023-04-16 11:24 | Emergency (ER) | payer BC, SELFPAY ==
[2023-04-16 11:36] VITALS: BP 135/71; PULSE 103; RESP 18; TEMP 36.8; O2SAT 95; BMI 38.3
--- NOTE | 2023-04-16 11:41 | EXP.UTC ---
Discharge Plan Disposition Patient Disposition: Home, Self-Care Condition: Good Prescriptions Prescriptions: New ciprofloxacin-dexamethasone 0.3-0.1 % Drops,Suspension 2 drp Ear-Both BID 7 Days Qty: 1 0RF methylprednisolone 4 mg Tablets,Dose Pack 4 mg PO DIRECTED Qty: 21 0RF amoxicillin-pot clavulanate 875-125 mg Tablet 1 tab PO Q12H Qty: 20 0RF No Action trazodone 100 mg tablet 1 tab PO DAILY 90 Days Qty: 90 Label Comments: paroxetine HCl 40 mg tablet 1 tbsp PO DAILY 90 Days Qty: 90 Label Comments: tramadol 50 mg tablet 1 tab PO DAILYP PRN (Reason: PAIN) 90 Days Qty: 270 Label Comments: fluticasone propionate [Allergy Relief (fluticasone)] 50 mcg/actuation spray,suspension 1 spray intranasal DAILY Qty: 16 2RF Rx Instructions: administer into each nostril amoxicillin-pot clavulanate 875-125 mg tablet 1 tab PO BID Qty: 20 0RF tizanidine 4 MG tablet 8 mg PO TID Qty: 30 0RF Rx Instructions: increase dose of medication, do not take current Tiazadine with this medication, may resume when this regimen is complete Referrals Follow up/Referrals: Provider,Referral, MD [Primary Care Provider] - See instructions Activity Restrictions/Add. Instructions Additional Instructions/Restrictions: Drink plenty of fluids. Take tylenol or ibuprofen for pain or fever. Take the medications as directed. Follow up with your regular doctor. GO TO THE ER FOR ANY WORSENING SYMPTOMS Clinical Impressions Clinical Impression: Sinusitis, Bronchitis Instructions Patient Instructions: Sinusitis, DI for Sinusitis Discharge ED Provider: Paresh Christiansen [facility] General Stated complaint: Chest congestion, cough, sinus congestion Time Seen by Provider: 04/16/23 11:41 History of Present Illness Provider Complaint: She states that for the past 4 days she has had worsening sinus congestion and chest congestion. Related Data Home Medications Medication Instructions Recorded Confirmed paroxetine HCl 40 mg tablet 1 tbsp PO DAILY MOOD 90 days ##90 01/06/18 02/03/23 trazodone 100 mg tablet 1 tab PO DAILY MOOD 90 days ##90 01/06/18 02/03/23 tramadol 50 mg tablet 1 tab PO DAILYP PRN PAIN 90 days 03/25/19 02/03/23 ##270 Previous Rx's Medication Instructions Recorded tizanidine 4 mg tablet 8 mg PO TID #30 tabs 10/25/21 amoxicillin 875 mg-potassium 1 tab PO BID #20 tabs 02/03/23 clavulanate 125 mg tablet fluticasone propionate 50 1 spray intranasal DAILY #16 grams 02/03/23 mcg/actuation nasal spray,suspension (Allergy Relief (fluticasone)) amoxicillin 875 mg-potassium 1 tab PO Q12H #20 tabs 04/16/23 clavulanate 125 mg tablet ciprofloxacin 0.3 %-dexamethasone 2 drp Ear-Both BID 7 days #1 ea 04/16/23 0.1 % ear drops,suspension methylprednisolone 4 mg tablets in 4 mg PO DIRECTED #21 tabs 04/16/23 a dose pack Allergies Allergy/AdvReac Type Severity Reaction Status Date / Time No Known Allergies Allergy Verified 02/03/23 09:34 [facility] Disclaimer: The information contained in this section may have been updated after the patient was seen, as this information can be updated by other users. Social History Smoking Status: Never smoker alcohol intake: never current occupational status: other Travel in the last 8 weeks: None household members: spouse housing: house current occupational exposures/hazards: No ROS Obtained: Yes All systems reviewed & no additional complaints except as documented Constitutional Constitutional: Reports poor appetite Eyes Eyes: Reports system reviewed and no additional complaints, except as documented ENT Ears, Nose, Mouth, and Throat: Reports as per HPI Cardiovascular Cardiovascular: Reports system reviewed and no additional complaints, except as documented and Denies chest pain Respiratory Respiratory: Denies
[2023-04-16 12:44] VITALS: BP 135/71; PULSE 103; RESP 18; TEMP 36.8
== END 2023-04-16 12:12 | disposition home or self-care (01) ==
PROVIDERS: Emergency Provider Nurse Practitioner Family
DX: J20.9 Acute bronchitis, unspecified (principal); J01.90 Acute sinusitis, unspecified
CPT/HCPCS: 99212; 99214; G0463

== ENCOUNTER → 2023-09-23 07:20 | Outpatient (CLI) | payer BC, SELFPAY ==
[2023-09-23 20:31] LABS: Basophils # 0.1 K/mm3 (0-0.2); Basophils % 0.8 % (0.1-2.0); Eosinophils # 0.3 K/mm3 (0.0-0.4); Eosinophils % 4.4 % (0.1-12.0); Hematocrit 38.6 % (37.0-47.0); Hemoglobin 13.3 g/dL (12.2-16.2); Lymphocytes # 1.8 K/mm3 (0.7-4.5); Lymphocytes % 24.8 % (10-50); Mean Corpuscular HGB Conc 34.5 g/dL (31.8-35.4); Mean Corpuscular Hemoglobin 31.8 pg (27.0-31.2); Mean Corpuscular Volume 92.2 fl (81-99); Mean Platelet Volume 10.5 fl (7.4-10.4); Monocytes # 0.4 K/mm3 (0.1-1.0); Neutrophils # 4.7 K/mm3 (1.8-7.8); Platelet Count 211 K/mm3 (142-424); Red Blood Count 4.19 M/mm3 (4.20-5.40); Red Cell Distribution Width 13.4 % (11.5-17.5); White Blood Count 7.2 K/mm3 (4.8-10.8)
[2023-09-23 21:44] LABS: Alanine Aminotransferase 32 U/L (12-78); Albumin/Globulin Ratio 1.5 (1.1-1.8); Alkaline Phosphatase 91 U/L (38-126); Anion Gap 11.9 mEq/L (5-15); Aspartate Amino Transferase 40 U/L (14-36); Bilirubin,Total 0.3 mg/dl (0.2-1.3); Blood Urea Nitrogen 21 mg/dl (7-17); Calcium 8.7 mg/dl (8.4-10.2); Carbon Dioxide 32 mmol/L (22.0-30.0); Chloride 97 mmol/L (98-107); Chol/HDL Ratio 1.9 (1-3.5); Cholesterol 138 mg/dl (140-200); Estimated Glomerular Filt Rate 74 ml/min (>60); GFR (African American) 89 ML/MIN (>60); Globulin 2.6 g/dL (1.3-3.2); Glucose 180 mg/dl (74-100); HDL Cholesterol 73 mg/dl (40-60); Potassium 3.9 mmoL/L (3.5-5.1); Sodium 137 mmol/L (136-145); Total Protein,Serum 6.6 g/dl (6.3-8.2); Triglycerides 67 mg/dl (30-150); VLDL Cholesterol 13 mg/dL (0-40)
[2023-09-23 22:01] LABS: Direct LDL Cholesterol 60.65 mg/dL (100-129)
[2023-09-23 22:17] LABS: Thyroid Stimulating Hormone 3.14 uIU/mL (0.465-4.68)
[2023-09-23 23:30] LABS: 25-OH Vitamin D, Total 52.1 ng/mL (30-100)
[2023-09-23 23:37] LABS: Hemoglobin A1C 6.5 % (4.0-6.0)
== END ==
PROVIDERS: PCP Student in an Organized Health Care Education/Training Program; Visit Provider Student in an Organized Health Care Education/Training Program
DX: E11.9 Type 2 diabetes mellitus without complications (principal); I10 Essential (primary) hypertension; E55.9 Vitamin D deficiency, unspecified; Z68.41 Body mass index [BMI] 40.0-44.9, adult; Z79.84 Long term (current) use of oral hypoglycemic drugs
CPT/HCPCS: 80053; 80061; 82306; 83036; 84443; 85025

== ENCOUNTER → 2023-10-29 22:00 | Outpatient (CLI) | payer BC, SELFPAY | PROVIDERS: PCP Nurse Practitioner Family; Visit Provider Nurse Practitioner Family | DX: R35.0 Frequency of micturition (principal); B96.29 Other Escherichia coli [E. coli] as the cause of diseases classified elsewhere | CPT/HCPCS: 87086 ==

== ENCOUNTER 2023-12-01 23:34 | Outpatient (CLI) | payer BC, SELFPAY | END 2023-12-01 23:59 | LOC: LAB.DROPOF 23:34 | PROVIDERS: PCP Nurse Practitioner Family; Visit Provider Student in an Organized Health Care Education/Training Program | DX: N39.0 Urinary tract infection, site not specified (principal); B96.29 Other Escherichia coli [E. coli] as the cause of diseases classified elsewhere | CPT/HCPCS: 87086 ==

== ENCOUNTER 2024-01-18 12:28 | Emergency (ER) | payer BC, SELFPAY ==
[2024-01-18 13:20] VITALS: BP 140/69; PULSE 95; RESP 18; TEMP 36.5; O2SAT 96; BMI 40.1
--- NOTE | 2024-01-18 13:30 | ED_ITS ---
Discharge Plan Disposition Patient Disposition: Home, Self-Care Condition: Good Prescriptions Prescriptions: New phenazopyridine [Pyridium] 200 mg tablet 200 mg PO Q8H 2 Days Qty: 6 0RF ciprofloxacin HCl [Cipro] 500 mg tablet 500 mg PO BID 7 Days Qty: 14 0RF ondansetron 4 mg Tablet,Disintegrating 4 mg PO Q8H PRN (Reason: Nausea) Qty: 8 0RF No Action trazodone 100 mg tablet 1 tab PO DAILY 90 Days Qty: 90 Patient Comments: paroxetine HCl 40 mg tablet 1 tbsp PO DAILY 90 Days Qty: 90 Patient Comments: tramadol 50 mg tablet 1 tab PO DAILYP PRN (Reason: PAIN) 90 Days Qty: 270 Patient Comments: duloxetine 60 mg capsule,delayed release(DR/EC) 60 mg PO BID hydroxychloroquine 200 mg tablet 200 mg PO BID Patient Comments: TAKE 1 TABLET BY MOUTH TWICE DAILY celecoxib 200 mg capsule 200 mg PO BID atorvastatin 40 mg tablet 40 mg PO DAILY Patient Comments: TAKE 1 TABLET BY MOUTH ONCE DAILY AT NIGHT valsartan-hydrochlorothiazide 160-12.5 mg tablet 1 tab PO DAILY Patient Comments: TAKE 1 TABLET BY MOUTH ONCE DAILY pregabalin 300 mg capsule 300 mg PO BID Premarin 0.625 mg/gram cream 0.625 mg vaginal .twice weekly Qty: 30 2RF Rx Instructions: blueberry sized amount (0.5g) into the vagina, twice weekly Mounjaro 2.5 mg/0.5 mL pen injector 2.5 mg SQ WEEKLY 28 Days Qty: 2 0RF sulfamethoxazole-trimethoprim 800-160 mg tablet 1 tab PO BID Qty: 14 0RF tizanidine 4 MG tablet 8 mg PO TID Qty: 30 0RF Rx Instructions: increase dose of medication, do not take current Tiazadine with this medication, may resume when this regimen is complete Referrals Follow up/Referrals: Lelia Whitten PA [Primary Care Provider] - See instructions Activity Restrictions/Add. Instructions Additional Instructions/Restrictions: Drink plenty of fluids. Take tylenol or ibuprofen for pain or fever. Take the medications as directed. Follow up with your regular doctor. GO TO THE ER FOR ANY WORSENING SYMPTOMS The pyridium will make your urine turn orange, this is an expected side effect. It will stain your clothes if it comes into contact with them. We will culture the urine. That will tell what bacteria is causing your infection and which antibiotics will treat it best. Sometimes the first antibiotic we prescribe turns out to not work against different bacteria. So, make sure you follow up within 3 days if you are not getting better. Clinical Impressions Clinical Impression: UTI (urinary tract infection) Instructions Patient Instructions: Urinary Tract Infection, Urine Culture, DI for Urinary Tract Infection (UTI), Phenazopyridine Discharge ED Provider: Paresh Christiansen [facility] [place] [place] General Stated complaint: Pain while urinating Time Seen by Provider: 01/18/24 13:29 History of Present Illness Provider Complaint: She states that for the past 2 days she has had dysuria, urinary frequency, and dysuria. Related Data Home Medications Medication Instructions Recorded Confirmed paroxetine HCl 40 mg tablet 1 tbsp PO DAILY MOOD 90 days ##90 01/06/18 12/01/23 trazodone 100 mg tablet 1 tab PO DAILY MOOD 90 days ##90 01/06/18 12/01/23 tramadol 50 mg tablet 1 tab PO DAILYP PRN PAIN 90 days 03/25/19 12/01/23 ##270 atorvastatin 40 mg tablet 40 mg PO DAILY 05/22/23 12/01/23 celecoxib 200 mg capsule 200 mg PO BID 05/22/23 12/01/23 duloxetine 60 mg capsule,delayed 60 mg PO BID 05/22/23 12/01/23 release hydroxychloroquine 200 mg tablet 200 mg PO BID 05/22/23 12/01/23 pregabalin 300 mg capsule 300 mg PO BID 05/22/23 12/01/23 valsartan 160 1 tab PO DAILY 05/22/23 12/01/23 mg-hydrochlorothiazide 12.5 mg tablet Previous Rx's Medication Instructions Recorded tizanidine 4 mg tablet 8 mg PO TID #30 tabs 10/25/21 conjugated estrogens 0.625 mg/gram 0.625 mg vaginal .twice weekly #30 05/22/23 vaginal cream (Premarin) grams tirzepatide 2.5 mg/0.5 mL 2.5 mg (0.5 mL) SQ WEEKLY 4 weeks 09/24/23 subcutaneous pen injector #2 mL (Santo) sulfamethoxazole 800 1 tab PO BID #14 tabs 12/01/23 mg-trimethoprim 160 mg tablet ciprofloxacin HCl 500 mg tablet 500 mg PO BID 7 days #14 tabs 01/18/24 (Cipro) ondansetron 4 mg disintegrating 4 mg PO Q8H PRN Nausea #8 tabs 01/18/24 tablet phenazopyridine 200 mg tablet 200 mg PO Q8H 2 days #6 tabs 01/18/24 (Pyridium) Allergies Allergy/AdvReac Type Severity Reaction Status Date / Time No Known Allergies Allergy Verified 12/01/23 15:37 [facility] Disclaimer: The information contained in this section may have been updated after the patient was seen, as this information can be updated by other users. Medical History Acute carpal tunnel syndrome Anxiety Arthritis BMI 40.0-44.9, adult Bronchitis Burning with urination delivery delivered Contusion of hand Febrile illness, acute Fibromyalgia History of hypertension HLD (hyperlipidemia) Increased frequency of urination Knee sprain Left ankle sprain Muscle spasm Navicular fracture, foot Obesity Osteoarthritis Otitis media Pharyngitis Psoriatic arthritis Sinusitis Skin rash Type 2 diabetes mellitus Surgical History H/O lumpectomy H/O: hysterectomy History of appendectomy History of cholecystectomy History of placement of ear tubes Family History Other Alcoholism Anemia Asthma Cancer Coronary artery disease Diabetes Heart attack Hyperlipidemia Hypertension Kidney disease Stroke Thyroid disorder Social History Smoking Status: Never smoker alcohol intake: never current occupational status: other Travel in the last 8 weeks: None household members: spouse housing: house current occupational exposures/hazards: No ROS Obtained: Yes All systems reviewed & no additional complaints except as documented Constitutional Constitutional: Reports system reviewed and no additional complaints, except as documented, Denies chills and Denies fever(s) Eyes Eyes: Denies eye discharge ENT Ears, Nose, Mouth, and Throat: Denies dysphagia, Denies sore throat and Denies throat swelling Cardiovascular Cardiovascular: Denies chest pain and Denies dyspnea Respiratory Respiratory: Denies chest congestion, Denies cough and Denies dyspnea Gastrointestinal Gastrointestingal: Denies abdominal pain, constipation, diarrhea, dysphagia, nausea or vomiting Genitourinary Female Genitourinary: Reports as per HPI, Reports dysuria, Reports urinary frequency, Denies urinary incontinence, Reports urinary hesitancy and Reports urinary urgency Musculoskeletal Musculoskeletal: Denies arthralgias and Reports back pain Integumentary/Breasts Skin/Breast: Denies rash Neurologic Neurologic: Denies paresthesias Allergic/Immunologic Allergic/Immunologic: Denies throat swelling Physical Exam General General appearance: alert and in no apparent distress Head Head exam: atraumatic and normocephalic Eye Eye exam: Present normal appearance, PERRL and EOMI ENT ENT exam: Present normal exam, mucous membranes moist, TM's normal bilaterally and normal external ear exam Neck Neck exam: Present normal inspection, full ROM and trachea midline; Absent tenderness, meningismus or lymphadenopathy Chest Chest inspection: Present normal inspection and symmetric chest wall rise; Absent tenderness Respiratory Respiratory exam: Present normal lung sounds bilaterally; Absent respiratory distress, wheezes or stridor Cardiovascular Cardiovascular exam: Present regular rate, normal rhythm and normal heart sounds Abdominal Exam Abdominal exam: Present soft and normal bowel sounds; Absent distention, tenderness, guarding, rebound, rigidity, incision, psoas sign, obturator sign, heel tap sign, Luo's sign, Rovsing's sign or tenderness at McBurney's Point Extremities Exam Extremities exam: Present normal inspection, full ROM and normal capillary refill; Absent tenderness, edema, joint swelling, calf tenderness or cyanosis Back Exam Back exam: Present normal inspection and full ROM; Absent tenderness, CVA tenderness (R) or CVA tenderness (L) Neurological Exam Neurological exam: Present alert, oriented X3 and normal gait Psychiatric Psychiatric exam: Present normal affect and normal mood Skin Skin exam: Present warm, dry, intact and normal color Lymphatic Lymphatic Findings: no adenopathy Medical Decision Making Medical Records Medical records reviewed: No I reviewed the patient's medical records. Aneesh Inquiry Pt receiving controlled substance: No Lab Data Lab results reviewed: Yes I reviewed the patient's lab results.
[2024-01-18 13:37] LABS: Apearance,Urine Slightly Cloudy (Clear); Bilirubin,Urine Negative (Negative); Blood, Urine Negative (Negative); Color,Urine Dark Yellow (Yellow); Glucose,Urine (UA) 2+ (Negative); Ketones,Urine Negative (Negative); PH,Urine 5.5 (5.0-8.5); Protein,Urine Negative (Negative); UTC Leukocyte Esterase,Urine Negative (Negative); UTC Nitrate,Urine Positive (Negative); Urobilinogen,Urine 0.2 EU/dl (0.2)
[2024-01-18 13:53] VITALS: BP 140/69; PULSE 95; RESP 18; TEMP 36.5; O2SAT 96
== END 2024-01-18 13:59 | disposition home or self-care (01) ==
PROVIDERS: Emergency Provider Nurse Practitioner Family; PCP Student in an Organized Health Care Education/Training Program
DX: N39.0 Urinary tract infection, site not specified (principal); B96.29 Other Escherichia coli [E. coli] as the cause of diseases classified elsewhere; I10 Essential (primary) hypertension; E78.5 Hyperlipidemia, unspecified
CPT/HCPCS: 81003; 87086; 87880; 99212; 99214; G0463

== ENCOUNTER 2024-01-29 22:28 | Outpatient (CLI) | payer BC, SELFPAY ==
[2024-01-29 19:15] LABS: Basophils # 0.1 K/mm3 (0-0.2); Basophils % 1.6 % (0.1-2.0); Eosinophils # 0.3 K/mm3 (0.0-0.4); Eosinophils % 6.7 % (0.1-12.0); Hematocrit 41.7 % (37.0-47.0); Hemoglobin 13.4 g/dL (12.2-16.2); Lymphocytes # 1.9 K/mm3 (0.7-4.5); Lymphocytes % 37.4 % (10-50); Mean Corpuscular HGB Conc 32.1 g/dL (31.8-35.4); Mean Corpuscular Hemoglobin 30.8 pg (27.0-31.2); Mean Platelet Volume 10.8 fl (7.4-10.4); Monocytes # 0.3 K/mm3 (0.1-1.0); Monocytes % 6.1 % (1.7-9.3); Neutrophils # 2.4 K/mm3 (1.8-7.8); Neutrophils % 48.2 % (37.0-80.0); Platelet Count 224 K/mm3 (142-424); Red Blood Count 4.34 M/mm3 (4.20-5.40); Red Cell Distribution Width 13.8 % (11.5-17.5); White Blood Count 5.1 K/mm3 (4.8-10.8)
[2024-01-29 19:47] LABS: Hemoglobin A1C 6.6 % (4.0-6.0)
[2024-01-29 19:49] LABS: Alanine Aminotransferase 32 U/L (12-78); Albumin Level 4.1 g/dl (3.5-5.0); Albumin/Globulin Ratio 1.6 (1.1-1.8); Alkaline Phosphatase 96 U/L (38-126); Anion Gap 9.5 mEq/L (5-15); Aspartate Amino Transferase 37 U/L (14-36); Bilirubin,Total 0.7 mg/dl (0.2-1.3); Blood Urea Nitrogen 18 mg/dl (7-17); Calcium 8.9 mg/dl (8.4-10.2); Carbon Dioxide 29 mmol/L (22.0-30.0); Chloride 102 mmol/L (98-107); Chol/HDL Ratio 2.5 (1-3.5); Cholesterol 152 mg/dl (140-200); Estimated Glomerular Filt Rate 74 ml/min (>60); GFR (African American) 89 ML/MIN (>60); Globulin 2.5 g/dL (1.3-3.2); Glucose 167 mg/dl (74-100); HDL Cholesterol 61 mg/dl (40-60); Potassium 3.5 mmoL/L (3.5-5.1); Sodium 137 mmol/L (136-145); Total Protein,Serum 6.6 g/dl (6.3-8.2); Triglycerides 166 mg/dl (30-150); VLDL Cholesterol 33 mg/dL (0-40)
[2024-01-29 20:01] LABS: Direct LDL Cholesterol 56.19 mg/dL (100-129)
[2024-01-29 20:07] LABS: 25-OH Vitamin D, Total 48.4 ng/mL (30-100)
[2024-01-29 20:21] LABS: Thyroid Stimulating Hormone 1.48 uIU/mL (0.465-4.68)
== END 2024-01-29 23:59 ==
LOC: LAB.DROPOF 22:29
PROVIDERS: PCP Student in an Organized Health Care Education/Training Program; Visit Provider Student in an Organized Health Care Education/Training Program
DX: E11.9 Type 2 diabetes mellitus without complications (principal); E78.5 Hyperlipidemia, unspecified; E55.9 Vitamin D deficiency, unspecified; Z79.899 Other long term (current) drug therapy
CPT/HCPCS: 80053; 80061; 82306; 83036; 84443; 85025

== ENCOUNTER 2024-02-06 18:30 | Outpatient (CLI) | payer BC, SELFPAY | END 2024-02-06 23:59 | LOC: LAB.DROPOF 18:31 | PROVIDERS: PCP Student in an Organized Health Care Education/Training Program; Visit Provider Student in an Organized Health Care Education/Training Program | DX: N39.0 Urinary tract infection, site not specified (principal); B96.29 Other Escherichia coli [E. coli] as the cause of diseases classified elsewhere | CPT/HCPCS: 87086 ==

== ENCOUNTER 2024-02-08 10:16 | Emergency (ER) | payer BC, SELFPAY ==
[2024-02-08 10:40] VITALS: BP 132/49; PULSE 102; RESP 19; TEMP 36.6; O2SAT 95; BMI 35.2
--- NOTE | 2024-02-08 10:58 | ED_ITS ---
Discharge Plan Disposition Patient Disposition: Home, Self-Care Condition: Good Prescriptions Prescriptions: New amoxicillin 500 mg tablet 500 mg PO BID Qty: 20 0RF No Action celecoxib 200 mg capsule 200 mg PO DAILY atorvastatin 40 mg tablet 40 mg PO HS Patient Comments: TAKE 1 TABLET BY MOUTH ONCE DAILY AT NIGHT tizanidine 4 mg tablet 4 mg PO DAILY Patient Comments: TAKE 2 TABLETS BY MOUTH THREE TIMES DAILY fluconazole 150 mg tablet 150 mg PO DAILY Patient Comments: TAKE 1 TABLET BY MOUTH ONCE DAILY FOR 14 DAYS trazodone 100 mg tablet 100 mg PO DAILY Patient Comments: TAKE 1 TABLET BY MOUTH ONCE DAILY AT NIGHT hydroxychloroquine 200 mg tablet 200 mg PO DAILY Patient Comments: TAKE 1 TABLET BY MOUTH TWICE DAILY paroxetine HCl 40 mg tablet 40 mg PO DAILY Patient Comments: TAKE 1 TABLET BY MOUTH ONCE DAILY duloxetine 60 mg capsule,delayed release(DR/EC) 60 mg PO DAILY Patient Comments: TAKE 1 CAPSULE BY MOUTH TWICE DAILY pregabalin 300 mg capsule 300 mg PO DAILY Patient Comments: TAKE 1 CAPSULE BY MOUTH TWICE DAILY Mounjaro 2.5 mg/0.5 mL pen injector 2.5 mg SQ WEEKLY Referrals Follow up/Referrals: Lelia Whitten PA [Primary Care Provider] - See instructions Activity Restrictions/Add. Instructions Additional Instructions/Restrictions: *Monitor Temp, Over the counter Motrin or Tylenol as directed/as needed Tylenol every 4 hours and Motrin every 6 hours (as long as your family doctor has told you that you can take it) for fever or pain. and straight to ER if unable to lower temp less than 101.0 after medication given *Warm salt water gargles may help to soothe the throat *Throat Lozenges? *Warm fluids like tea with honey may help to soothe the throat? *Sleep elevated *Humidifier/Vaporizer *If you did not take Penicillin shot or was unable to, start taking antibiotic immediately and make sure that you take it for the FULL length of time although you should start to feel better in 24-48 hours *change toothbrush and toothpaste 24-48 hours after starting to take antibiotics so you do not reinfect yourself Monitor Temp. Tylenol and/or Ibuprofen as needed. ER if fever is no less than 101 despite alternating Tylenol and Ibuprofen * Encourage fluids, water, Gatorade, powerade, pedialyte if infant/toddler/or child *Cold fluids, popsicles and ice cream may feel good on his throat Follow up IMMEDIATELY for new or worsening symptoms or no Noticeable improvement over the next 48-72 hours. 911 for difficulty breathing or swallowing Clinical Impressions Clinical Impression: Strep throat Instructions Patient Instructions: DI for Strep Throat, Strep Throat Discharge ED Provider: Deirdre Suero [facility] General Stated complaint: BROWN, sore throat Mode of Arrival: Ambulatory Source of Information: Patient Limitations: No Limitations Time Seen by Provider: 02/08/24 10:58 Description of Symptoms (Recalled from Triage Doc. by RN): PATIENT C/O SORE THROAT, EAR PAIN AND BODY ACHES SINCE LAST NIGHT HEENT Symptoms (Recalled from RN notes): Yes Resp Symptoms (Recalled from RN notes): No Skin Symptoms (Recalled from RN notes): No MS Symptoms (Recalled from RN notes): No Functional Status (Recalled from RN notes): WNL History of Present Illness Provider Complaint: Patient states that her daughter has strep throat and last night she started with sore throat and feeling pain in her ears when she swallows and feeling achy so today she came in to get checked Related Data Home Medications Medication Instructions Recorded Confirmed atorvastatin 40 mg tablet 40 mg PO HS 02/08/24 02/08/24 celecoxib 200 mg capsule 200 mg PO DAILY 02/08/24 02/08/24 duloxetine 60 mg capsule,delayed 60 mg PO DAILY 02/08/24 02/08/24 release fluconazole 150 mg tablet 150 mg PO DAILY 02/08/24 02/08/24 hydroxychloroquine 200 mg tablet 200 mg PO DAILY 02/08/24 02/08/24 paroxetine HCl 40 mg tablet 40 mg PO DAILY 02/08/24 02/08/24 pregabalin 300 mg capsule 300 mg PO DAILY 02/08/24 02/08/24 tirzepatide 2.5 mg/0.5 mL 2.5 mg SQ WEEKLY 02/08/24 02/08/24 subcutaneous pen injector (Santo) tizanidine 4 mg tablet 4 mg PO DAILY 02/08/24 02/08/24 trazodone 100 mg tablet 100 mg PO DAILY 02/08/24 02/08/24 Previous Rx's Medication Instructions Recorded amoxicillin 500 mg tablet 500 mg PO BID #20 tabs 02/08/24 Allergies Allergy/AdvReac Type Severity Reaction Status Date / Time No Known Allergies Allergy Verified 02/06/24 13:14 Worker's Comp Is this a Worker's Comp case?: No [facility] Disclaimer: The information contained in this section may have been updated after the patient was seen, as this information can be updated by other users. Medical History Increased frequency of urination Type 2 diabetes mellitus HLD (hyperlipidemia) Anxiety BMI 40.0-44.9, adult Obesity Psoriatic arthritis delivery delivered Acute carpal tunnel syndrome Fibromyalgia Osteoarthritis Arthritis History of hypertension Contusion of hand Muscle spasm Otitis media Pharyngitis Febrile illness, acute Skin rash Sinusitis Bronchitis Left ankle sprain Navicular fracture, foot Burning with urination Knee sprain Surgical History H/O lumpectomy History of placement of ear tubes History of appendectomy History of cholecystectomy H/O: hysterectomy has ovaries Family History Other Alcoholism Anemia Asthma Cancer Coronary artery disease Diabetes Heart attack Hyperlipidemia Hypertension Kidney disease Stroke Thyroid disorder Social History Smoking Status: Never smoker alcohol intake: never current occupational status: other Travel in the last 8 weeks: None household members: spouse housing: house current occupational exposures/hazards: No ROS Obtained: Yes All systems reviewed & no additional complaints except as documented and Yes Systems reviewed as appropriate & no additional complaints except as documented Constitutional Constitutional: Reports system reviewed and no additional complaints, except as documented, Reports as per HPI and Reports body ache ENT Ears, Nose, Mouth, and Throat: Reports system reviewed and no additional complaints, except as documented, Reports as per HPI, Reports otalgia and Reports sore throat Cardiovascular Cardiovascular: Reports system reviewed and no additional complaints, except as documented and Reports as per HPI Respiratory Respiratory: Reports system reviewed and no additional complaints, except as documented and Reports as per HPI Gastrointestinal Gastrointestingal: Reports system reviewed and no additional complaints, except as documented and as per HPI Physical Exam General General appearance: alert and in no apparent distress ENT ENT exam: Present mucous membranes moist Expanded ENT Exam Throat exam: Present tonsillar erythema Respiratory Respiratory exam: Present normal lung sounds bilaterally; Absent respiratory distress or wheezes Cardiovascular Cardiovascular exam: Present regular rate, normal rhythm and normal heart sounds Neurological Exam Neurological exam: Present alert, oriented X3 and normal gait Medical Decision Making Aneesh Inquiry Pt receiving controlled substance: No Aneesh was queried for this patient: No Vital Signs: 02/08/24 10:40 Temperature 97.9 F Temperature Source Oral Pulse Rate [Right Brachial] 102 H Respiratory Rate 19 Blood Pressure [Right Arm] 132/49 L Blood Pressure Mean [Right Arm] 76 Blood Pressure Source [Right Arm] Automatic Cuff Blood Pressure Position [Right Arm] Sitting 02 Sat by Pulse Oximetry 95 Oxygen Delivery Method Room Air Lab Data Lab results reviewed: Yes I reviewed the patient's lab results.
[2024-02-08 11:04] VITALS: BP 132/49; PULSE 102; RESP 19; TEMP 36.6; O2SAT 95
[2024-02-08 11:06] LABS: UTC Strep Screen (Rapid) Positive (Negative)
== END 2024-02-08 11:09 | disposition home or self-care (01) ==
PROVIDERS: Emergency Provider Nurse Practitioner; PCP Student in an Organized Health Care Education/Training Program
DX: J02.0 Streptococcal pharyngitis (principal); R51.9 Headache, unspecified; H92.09 Otalgia, unspecified ear; E11.9 Type 2 diabetes mellitus without complications; E78.5 Hyperlipidemia, unspecified; F41.9 Anxiety disorder, unspecified; L40.52 Psoriatic arthritis mutilans
CPT/HCPCS: 87880; 99212; 99214; G0463

== ENCOUNTER 2024-05-21 09:29 | Outpatient (CLI) | payer BC, SELFPAY ==
[2024-05-21 19:27] LABS: Cholesterol 147 mg/dl (140-200); HDL Cholesterol 72 mg/dl (40-60); Triglycerides 86 mg/dl (30-150); VLDL Cholesterol 17 mg/dL (0-40)
[2024-05-21 19:39] LABS: Direct LDL Cholesterol 45.86 mg/dL (100-129)
[2024-05-21 20:17] LABS: Hemoglobin A1C 6.8 % (4.0-6.0)
== END 2024-05-21 23:59 | disposition home or self-care (01) ==
LOC: LAB.DROPOF 05-24 09:31
PROVIDERS: PCP Student in an Organized Health Care Education/Training Program; Visit Provider Student in an Organized Health Care Education/Training Program
DX: E11.9 Type 2 diabetes mellitus without complications (principal); Z79.85 Long-term (current) use of injectable non-insulin antidiabetic drugs
CPT/HCPCS: 80061; 83036

== ENCOUNTER 2025-07-26 10:14 | Outpatient (CLI) | payer MEDICARE, BC, SELFPAY ==
--- OUTSIDE RECORDS SUMMARY | 2025-07-26 10:55 | XMS_ITS | Clinical Summary ---
Author Organization [facility] Address [address] [place] [address] Care Team Providers Care Pecan Huller Name Role Phone Amy Garay MD Primary Care Provider [phone] Social History Tobacco Use Types Packs/Day Years Used Date Smoking Tobacco: Never Assessed Abuse Screen Answer Date Recorded Unsafe at Home or Work/School Not on file Feels Threatened by Someone? Not on file 07/2023 Does Anyone Keep You from Co ntacting Others or Doint Things Outside the Home? Not on file 09/01/2023 Physical Sign of Abuse Present Not on file 1 Housing Stability Answer Date Recorded Current Living Arrangements Not on file 07/2023 Potentially Unsafe Housing Conditions Not on louie e 09/01/2023 Family and Community Support Answer Oskar e Recorded Help with Day-to-Day Activities Not on file 09/01/2023 Lonely or Isolated Not on file 09/01/2023 Employment Answer Date Recorded Do you want help finding or keeping work or a johnny b? Not on file 09/01/2023 Disabilities Answer Date Recorded Concentrating, Remembering, or Making Decisions Difficulty Not on file 09/01/2023 Doing Errands Independently Difficulty Not on fi le 09/01/2023 Education Answer Date Recorded Help with school or training? Not on file Preferred Language Not on file 09/01/2023 Comments Unknown Sex and Gender Information Value Date Recorded Sex Assigned at Not on file Legal Sex Female 12:02 PM EDT Gender Identity Not on file Sexual Orientation Not on file Plan of Treatment Health Maintenance Due Date Last Done Comments ANNUAL PHYSICAL 1965 Annual Gynecologic Pelvic an d Breast Exam 1965 HEPATITIS C SCREENING 1965 MAMMOGRAM 2005 COLOGUARD 2010 COLON CANCER SCREENING 5 YEA R SIGMOIDOSCOPY 2010 COLONOSCOPY [address] CANCER SCREENING 2010 CT COLONOGRAPHY 2010 FECAL OCCULT BLOOD TEST 2010 FIT Testing (1 year) 2010 TDAP/TD VACCINES (2 - Tdap) 04/22/2012 04/22/2002 Pneumococcal Vaccine 50+ (1 of 1 - PCV) 2015 ZOSTER VACCINE (2 of 2) 12/11/2019 10/16/2019 COVID-19 Vaccine (2 - 2023-2 5 season) 2024 01/31/2021 INFLUENZA VACCINE 08/24/2025 08/22/2021, , 10/16/2019, Additional history exists HEMOGLOBIN A1C Discontinued 12/31/2021, 05/2022, 09/28/2021, Additional history exists Insurance [facility] PPO Member Subscriber Plan / Payer (Ef fective 2020-Present) Name:Robbin Keen Relation to Subscriber:Spouse Name:PASHA KEEN Date of :1962 (Home) Address: [place] [address] Payer ID:[id number] (NAIC) Type:Not on file Address: [facility] [id number] [place] [id number] Care Teams Pecan Huller Relationship Specialty Start Date End Date Amy Garay MD [address] [place] [address] PCP - General 02/21/16
--- OUTSIDE RECORDS SUMMARY | 2025-07-26 10:55 | XMS_ITS | Clinical Summary ---
Author Organization [facility] Address [address] [place] [address] Care Team Providers Care Console Attendant Name Role Phone Talib Hoff MD Primary Care Provider Allergies Active Allergy Reactions Criticality Noted Date Comments Acetaminophen Unknown - Patient st ates they do not know rxn details Low 01/23/2016 Was told not to take due to Sjogren's syndrome Nsaids Unknown - Patient st ates they do not know rxn details Low 01/23/2016 Was told not to take due to Sjohren's syndrome Medications celecoxib (CeleBREX) 100 MG capsule Take 1 capsule (100 mg) by mouth 2 (two) times a day. 12/21/19 21 Active fluticasone (Flonase) 50 MCG/ACT nasal spray Administer 1 spray into each nostril 2 (two) times a day. 12/21/19 21 Active pregabalin (Lyrica) 300 MG capsule Take 1 capsule (300 mg) by mouth 2 (two) times a day. 01/02/20 17 Active tiZANidine (Zanaflex) 4 MG tablet Take 2 tablets (8 mg) by mouth every 8 (eight) hours if needed. 07/02/20 16 Active traMADol (Ultram) 50 MG tablet Take 2 tablets (100 mg) by mouth 3 (three) times a day. 06/26/20 16 Active diclofenac (Voltaren) 1 % topical gelIndications:Acut e right-sided low back pain without sciatica,Neck pain, musculoskeletal Place 1 application on the skin 2 (two) times a day. 50 g 07/20/20 21 Active B-12 [address] 1 UNDER THE TONGUE AND LET DISSOLVE ONCE DAILY 05/06/20 22 Active hydroxychloroquine (Plaquenil) 200 MG tablet 05/07/20 22 Active Premarin vaginal cream APPLY A BLUEBERRY (0.5G) SIZED AMOUNT VAGINALLY TWICE WEEKLY 05/22/20 23 Active valsartan-hydroCHLO ROthiazide (Diovan-HCT) 160-12.5 MG tabletIndications:B enign essential HTN Take 1 tablet by mouth 1 (one) time each day. 90 tablet 3 05/30/20 23 Active DULoxetine (Cymbalta) [address] capsule Take 1 capsule (60 mg) by mouth 1 (one) time each day. 90 capsule 3 05/30/20 23 Active Mounjaro 10 MG/0.5ML solution pen-injector solution pen-injectorIndicat ions:Type 2 diabetes mellitus without complication, without long-term current use of insulin INJECT 10MG UNDER THE SKIN ONCE PER WEEK 4 mL 01/19/20 24 Active traZODone (Desyrel) 100 MG tabletIndications:P rimary insomnia TAKE 1 TABLET BY MOUTH ONCE DAILY AT NIGHT 30 tablet 05/19/20 24 Active PARoxetine (Paxil) 40 MG tabletIndications:C urrent mild episode of major depressive disorder without prior episode (CMS/HCC) Take 1 tablet by mouth once daily 30 tablet 05/19/20 24 Active atorvastatin (Lipitor) 40 MG tabletIndications:M ixed hyperlipidemia TAKE 1 TABLET BY MOUTH ONCE DAILY AT NIGHT 90 tablet 06/28/20 24 Active Active Problems Problem Noted Date Diagnosed Date Morbid obesity with body mass index (BMI) of 40. 0 or higher 12/31/2021 Sjogren's syndrome 06/25/2021 Allergic rhinitis 04/11/2021 Type 2 diabetes mellitus wit hout complication, without long-term current use of insulin 04/11/2021 Fibromyalgia 12/22/2019 Hyperlipidemia 12/22/2019 Insomnia 08/12/2018 Depression 02/18/2018 Benign essential HTN 04/23/2017 Arthropathic psoriasis 01/23/2016 Asthma 01/23/2016 LANG (nonalcoholic steatohepatitis) 01/23/2016 Resolved Problems Problem Noted Date Diagnosed Date Resolved Date Acute right-sided low back p ain without sciatica 07/20/2021 09/28/2021 Neck pain, musculoskeletal 07/20/2021 1 11/28/2020 Morbid obesity 07/15/2017 12/31/2021 Immunizations Immunization Administration Dates Next Due Hep B, adult 07/08/2002,04/02/2002,03/02/2002 Influenza, injectable, quadrivalent 09/24/2019,1 Influenza, injectable, quadr ivalent, preservative free 09/17/2022,08/22/2021,08/29/2020,2018,09/21/2019,09/27/2018 Latanya COVID-19 Vaccine (Bl ue Cap) 18+ 01/31/2021 MMR 04/02/2002,03/02/2002 Moderna COVID-19 Vaccine (Re d Cap) 12+ years 12/06/2021 TD (adult), 2 Lf tetanus tox oid, preservative free, adsorbed 04/22/2002 Zoster, Recombinant 10/16/2019 Family History Medical History Relation Name Comments Leukemia Father Menorrhagia Father Relation Name Status Comments Father Social History Tobacco Use Types Packs/Day Years Used Date Smoking Tobacco: Never Smokeless Tobacco: Never Tobacco Cessation:Counseling Given: Not Answered PHQ-2 Answer Date Recorded Patient Health Questionnaire-2 Score 0 08/29/2023 PHQ-2A Answer Date Recorded Patient Health Questionnaire-2 Score 0 08/29/2023 Comments Unknown Sex and Gender Information Value Date Recorded Sex Assigned at Not on file Legal Sex Female 7:49 PM EDT Gender Identity Not on file Sexual Orientation Not on file Last Filed Vital Signs Vital Sign Reading Time Taken Comments Blood Pressure 100/74 08/29/2023 10:02 AM EDT Pulse 74 08/29/2023 10:02 AM EDT Temperature 36.8 C (98.3 F) 01/21/2023 1:20 PM EST Respiratory Rate 18 08/29/2023 10:0 2 AM EDT Oxygen Saturation 100% 08/29/2023 10: 02 AM EDT Inhaled Oxygen Concentration - - Weight 97.9 kg (215 lb 13.3 oz) 023 10:02 AM EDT Height 154.9 cm (5' 1 ) 08/29/2023 10:0 2 AM EDT Body Mass Index 40.78 08/29/2023 10:02 AM EDT Plan of Treatment Health Maintenance Due Date Last Done Comments [facility]-HIV Screening 1965 [facility]-Hepatitis C Screening 1965 [facility]-/Child/Adol SDOH Screenings 1965 Diabetes: Dental Exam 1975 [facility]- SDOH Screenings 1983 [facility]-Adult SDOH Screenings 1983 [facility]-Hepatitis A Vaccines (1 of 2 - Risk 2-dose series) 1984 [facility]-Pneumococcal Vaccine: 50+ Years (1 of 2 - PCV) 1984 [facility]-Pap Smear 1986 [facility]-Cervical Cancer Screening 1995 [facility]-HPV/Cotest 1995 [facility]-DTaP,Tdap,and Td Vaccines (1 - Tdap) 04/23/2002 04/22/2002 CT Colonography 2010 Colonoscopy 2010 FIT 2010 FOBT 2010 Sigmoidoscopy 2010 [facility]-Zoster Vaccines (2 of 2) 12/11/2019 10/16/2019 [facility]-Breast Cancer Screening 04/30/2023 04/30/2021, 0 04/30/2021 [facility]-Diabetes: Hemoglobin A1C 11/27/202305/2023, 01/21/2023, 10/21/2022, Additional history exists [facility]-PTUNO-60 Vaccine (3 - season) 2024 12/06/2021, 01/31/2021 [facility]-Depression Screening 08/29/2024 08/29/2023 [facility]-Influenza Vaccine (#1) 07/25/202509/17, 08/22/2021, 08/29/2020, Additional history exists FIT-DNA 10/09/2025 10/09/2022, 09/08/2019 [facility]-Colorectal Cancer Screening 10/09/2025 [facility]-Hepatitis B Vaccines Completed 002, 04/02/2002, 03/02/2002 [facility]-Obesity Intervention Completed 023, 05/30/2023, 05/30/2023, Additional history exists HPV Vaccines Aged Out No longer eligi ble based on patient's age to complete this topic [facility]-HIB Vaccines Aged Out No longer e ligible based on patient's age to complete this topic [facility]-IPV Vaccines Aged Out No longer e ligible based on patient's age to complete this topic [facility]-Rotavirus Vaccines Aged Out No lo nger eligible based on patient's age to complete this topic Procedures Procedure Name Priority Date/Time Associated Diagnosis Comments HEMOGLOBIN A1C Routine 05/30/2023 9:28 AM EDT Type 2 diabetes mellitus without complication, without long-term current use of insulin ([facility]) LAB COLOGUARD COLON CANCER SCREEN Routine 10/09/2022 12:51 PM EST Healthcare maintenance MAMMOGRAPHY EXTERNAL RESULTS 04/30/2021 from Last 3 Months or Most Recently Relevant to Health Maintenance Results * (ABNORMAL) Hemoglobin A1c (05/30/2023 9:28 AM EDT) Hemoglobin A1c 6.6(H) <5.7 % 05/30/2023 2:08 PM EDT [facility] Blood Venous blood specimen / Unknown Venipuncture / Unknown 05/30/2023 9:28 AM EDT 05/30/2023 9:28 AM EDT Narrative [facility] - 05/30/2023 2:08 PM EDT HA1C Interpretive Data: Diagnosis of Diabetes: Diabetic > or = 6.5% Pre-diabetic 5.7 to 6.4% Non-diabetic < or = 5.6% Glycemic Targets for Type I and Type II Diabetics: Non- Adults <7.0% Adults <6.0% Children and Adolescents <7.5% Source: [place] [employer]. Standards of medical care in diabetes,2017. Diabetes Care.2017:40 (suppl 1):S1-S135. HbA1c assay performed by an ion-exchange chromatography method that is certified traceable to the DCCT. us Talib Hoff MD LAB BLOOD ORDERABLES Fi nal Result [facility] [address] [place] [address] * Cologuard?? colon cancer screening (10/09/2022 12:51 PM EST) Cologuard Negative Negative 10/14/2022 9:19 PM [facility] (CLIA #:[id number]) Comment: NEGATIVE TEST RESULT. A negative Cologuard result indicates a low likelihood that a colorectal cancer (CRC) or advanced adenoma (adenomatous polyps with more advanced pre-malignant features) is present. The chance that a person with a negative Cologuard test has a colorectal cancer is less than 1 in 1500 (negative predictive value >99.9%) or has an advanced adenoma is less than 5.3% (negative predictive value 94.7%). These data are based on a prospective cross-sectional study of 10,000 individuals at average risk for colorectal cancer who were screened with both Cologuard and colonoscopy. (Yao mSith al, N Engl J Med 2014;370(14):3946-9693) The normal value (reference range) for this assay is negative. COLOGUARD RE-SCREENING RECOMMENDATION: Periodic colorectal cancer screening is an important part of preventive healthcare for asymptomatic individuals at average risk for colorectal cancer. Following a negative Cologuard result, the [place] Cancer Society and U.S. Multi-Society Task Force screening guidelines recommend a Cologuard re-screening interval of 3 years. References: [place] [employer] Guideline for Colorectal Cancer Screening: https://www.cancer.org/cancer/viyib-lysjbe-uubbhv/uaoozcjbs-xgvfklgtq-pewphig/ac s-rec ommendations.html.; Chevy DK, Loli CR, Jay TillmanK, Colorectal Cancer Screening: Recommendations for Physicians and Patients from the U.S. Multi-Society Task Force on Colorectal Cancer Screening , Am J Gastroenterology 2017; 112:0459-0762. TEST DESCRIPTION: Composite algorithmic analysis of stool DNA-biomarkers with hemoglobin immunoassay. Quantitative values of individual biomarkers are not reportable and are not associated with individual biomarker result reference ranges. Cologuard is intended for colorectal cancer screening of adults of either sex, 45 years or older, who are at average-risk for colorectal cancer (CRC). Cologuard has been approved for use by the U.S. FDA. The performance of Cologuard was established in a cross sectional study of average-risk adults aged 50-84. Cologuard performance in patients ages 45 to 49 years was estimated by sub-group analysis of near-age groups. Colonoscopies performed for a positive result may find as the most clinically significant lesion: colorectal cancer [4.0%], advanced adenoma (including sessile serrated polyps greater than or equal to 1cm diameter) [20%] or non- advanced adenoma [31%]; or no colorectal neoplasia [45%]. These estimates are derived from a prospective cross-sectional screening study of 10,000 individuals at average risk for colorectal cancer who were screened with both Cologuard and colonoscopy. (Yao Garcia et al, N Engl J Med 2014;370(14):1214-7621.) Cologuard may produce a false negative or false positive result (no colorectal cancer or precancerous polyp present at colonoscopy follow up). A negative Cologuard test result does not guarantee the absence of CRC or advanced adenoma (pre-cancer). The current Cologuard screening interval is every 3 years. ([place] Cancer Society and U.S. Multi-Society Task Force). Cologuard performance data in a 10,000 patient pivotal study using colonoscopy as the reference method can be accessed at the following location: www.[employer]/results. Additional description of the Cologuard test process, warnings and precautions can be found at www.[employer]ed[employer].SynAgile. Stool specimen (specimen) 10/09/2022 12:51 PM EST 10/10/2022 11:12 AM EST Talib Hoff MD LAB MOLECULAR DIAGNOSTI CS ORDERABLES Final Result [facility] (CLIA #:[id number]) [address] [place] [address], * MAMMOGRAPHY EXTERNAL RESULTS (04/30/2021) Anatomical Region Laterality Modality Mammography Narrative 04/30/2021 Ordered by an unspecified provider. us External Provider IMG BI PROCEDURES Final Result from Last 3 Months or Most Recently Relevant to Health Maintenance Insurance [employer] MEDICARE [facility] Care Teams Console Attendant Relationship Specialty Start Date End Date Talib Hoff MD [address] [place] [address] PCP - General Family Medicine 05/13/22
[2025-07-26 11:21] LABS: Hematocrit 40.3 % (37.0-47.0); Hemoglobin 13.7 g/dL (12.2-16.2); Immature Granulocytes % 0.3 %; Mean Corpuscular HGB Conc 34.0 g/dL (31.8-35.4); Mean Corpuscular Hemoglobin 30.0 pg (27.0-31.2); Mean Corpuscular Volume 88.2 fl (81-99); Nucleated Red Blood Cells % 0 %; Platelet Count 236 K/mm3 (142-424); Red Blood Count 4.57 M/mm3 (4.20-5.40); Red Cell Distribution Width-SD 42.5 fL; White Blood Count 3.8 K/mm3 (4.8-10.8)
[2025-07-26 11:39] LABS: Hemoglobin A1C 6.2 % (4.0-6.0)
[2025-07-26 11:58] LABS: Alanine Aminotransferase 35 U/L (12-78); Albumin Level 4.0 g/dl (3.5-5.0); Albumin/Globulin Ratio 1.4 (1.1-1.8); Alkaline Phosphatase 81 U/L (38-126); Anion Gap 10.0 mEq/L (5-15); Aspartate Amino Transferase 45 U/L (14-36); Bilirubin,Total 0.8 mg/dl (0.2-1.3); Blood Urea Nitrogen 18 mg/dl (7-17); Calcium 9.2 mg/dl (8.4-10.2); Carbon Dioxide 33 mmol/L (22.0-30.0); Chloride 99 mmol/L (98-107); Cholesterol 151 mg/dl (140-200); Creatinine,Serum 0.80 mg/dl (0.52-1.04); Estimated Glomerular Filt Rate 73 ml/min (>60); GFR (African American) 89 ML/MIN (>60); Globulin 2.8 g/dL (1.3-3.2); Glucose 111 mg/dl (74-100); HDL Cholesterol 76 mg/dl (40-60); Potassium 4.0 mmoL/L (3.5-5.1); Sodium 138 mmol/L (136-145); Total Protein,Serum 6.8 g/dl (6.3-8.2); Triglycerides 53 mg/dl (30-150)
== END 2025-07-26 23:59 | disposition home or self-care (01) ==
LOC: LAB 10:16
PROVIDERS: PCP Internal Medicine; Visit Provider Internal Medicine
DX: Z00.00 Encounter for general adult medical examination without abnormal findings (principal); E11.9 Type 2 diabetes mellitus without complications; Z13.220 Encounter for screening for lipoid disorders; Z11.4 Encounter for screening for human immunodeficiency virus [HIV]
CPT/HCPCS: 36415; 80053; 80061; 82043; 82570; 83036; 85025; 87389

== ENCOUNTER 2025-10-06 09:03 | Outpatient (CLI) | payer MEDICARE, BC, SELFPAY | END 2025-10-06 23:59 | LOC: LAB.DROPOF 10-10 09:06 | PROVIDERS: PCP Internal Medicine; Visit Provider Internal Medicine | DX: J02.9 Acute pharyngitis, unspecified (principal) | CPT/HCPCS: 87070 ==